=== PATIENT | male | born 1990 | race Hispanic/Latino ===

== ENCOUNTER 2016-08-10 12:10 | Emergency (ER) | payer MEDICAID ==
[2016-08-10 12:59] VITALS: RESP 18; TEMP 98.1
--- NOTE | 2016-08-10 13:28 | ED PDOC ---
HPI: Male Pain Time Seen by Provider: 08/10/16 13:17 Chief Complaint (Nursing): Male Genitourinary Chief Complaint (Provider): flank pain History Per: Patient History/Exam Limitations: no limitations Additional Complaint(s): 25yo male w/ Hx cyclic vomiting syndrome comes to the ED complaining of right flank pain radiating to the penis since 0600 today. No fever or diarrhea. States he was seen and diagnosed with a 4mm kidney stone at [facility] [place] 2 weeks ago. Has not had any pain between then and now. Was discharged without any Rx. Also reports vomit and abdominal pain. States he was instructed to follow up with Dr. Velazquez but has not done so due to insurance issue. Past Medical History Reviewed: Historical Data, Nursing Documentation, Vital Signs Vital Signs: Last Vital Signs Temp 98.1 F 08/10/16 12:57 Pulse 74 08/10/16 12:57 Resp 18 08/10/16 12:57 BP 166/89 H 08/10/16 12:57 Pulse Ox 99 08/10/16 12:57 - Medical History PMH: Asthma, Gastritis, Kidney Stones, Post Traumatic Stress Disorder Other PMH: cyclic vomiting symptom - Surgical History Surgical History: No Surg Hx - Family History Family History: States: Unknown Family Hx - Immunization History Hx Tetanus Toxoid Vaccination: No Hx Influenza Vaccination: No Hx Pneumococcal Vaccination: No - Home Medications Home Medications: Ambulatory Orders Medication Instructions Recorded Metoclopramide HCl [Reglan] 10 mg PO BID PRN #10 tablet 08/10/16 oxyCODONE/Acetaminophen [Percocet 1 ea PO Q6 PRN #6 tab 08/10/16 5/325 mg Tab] - Allergies Allergies/Adverse Reactions: Allergies Allergy/AdvReac Type Severity Reaction Status Date / Time No Known Allergies Allergy Verified 08/10/16 12:56 Review of Systems ROS Statement: Except As Marked, All Systems Reviewed And Found Negative Constitutional: Negative for: Fever Gastrointestinal: Positive for: Vomiting, Abdominal Pain. Negative for: Nausea , Diarrhea Physical Exam - Reviewed Nursing Documentation Reviewed: Yes Vital Signs Reviewed: Yes - Physical Exam Appears: Positive for: Non-toxic, No Acute Distress, Uncomfortable Head Exam: Positive for: ATRAUMATIC, NORMAL INSPECTION, NORMOCEPHALIC Skin: Positive for: Warm, Dry Eye Exam: Positive for: EOMI, PERRL Cardiovascular/Chest: Positive for: Regular Rate, Rhythm Respiratory: Positive for: Normal Breath Sounds. Negative for: Rales, Rhonchi, Wheezing Gastrointestinal/Abdominal: Positive for: Soft. Negative for: Tenderness Back: Positive for: R CVA Tenderness, Other (right flank tenderness). Negative for: L CVA Tenderness Extremity: Positive for: Normal ROM Neurologic/Psych: Positive for: Alert, Oriented - Laboratory Results Result Diagrams: 08/10/16 13:45 08/10/16 13:45 - ECG O2 Sat by Pulse Oximetry: 99 (RA) Pulse Ox Interpretation: Normal - Progress Re-evaluation Time: 18:28 Condition: Re-examined, Improved Medical Decision Making Medical Decision Makin: Rule out urethral stone, obstruction, urinary tract infection, cyclic vomiting syndrome, other abdominal pathology considered but not listed. CT abd/pel Impression: 5 mm ureteral calculus is noted within the urinary bladder just distal to the right UVJ. Mild fullness of the right system in ureter compatible with recently passed stone. Punctate nonobstructing 4 mm right renal calculus. Disposition - Clinical Impression Clinical Impression: Bladder stones, Renal colic on right side, Cyclic vomiting syndrome, Cannabis- induced anxiety disorder - Patient ED Disposition Is Patient to be Admitted: No Doctor Will See Patient In The: Office Counseled Patient/Family Regarding: Studies Performed, Diagnosis, Need For Followup - Disposition Referrals: Ryder Velazquez Jr., MD [Staff Provider] - Ryder Real MD, PhD [Staff Provider] - Disposition: Routine/Home Disposition Time: 18:30 Condition: GOOD Additional Instructions: Follow up with urologist and your PCP within 2-3 days. Prescriptions: oxyCODONE/Acetaminophen [Percocet 5/325 mg Tab] 1 ea PO Q6 PRN #6 tab PRN Reason: Pain, Moderate (4-7) Metoclopramide HCl [Reglan] 10 mg PO BID PRN #10 tablet PRN Reason: Nausea/Vomiting Instructions: Renal Colic (ED), Acute Nausea and Vomiting (ED) Additional Comments - Additional Comments Additional Comments: Scribe Attestation: Documented by Jorge Gutierrez acting as a scribe for Stephanie De Oliveira MD. Provider Scribe Attestation: All medical record entries made by the Scribe were at my direction and personally dictated by me. I have reviewed the chart and agree that the record accurately reflects my personal performance of the history, physical exam, medical decision making, and the department course for this patient. I have also personally directed, reviewed, and agree with the discharge instructions and disposition.
[2016-08-10] MEDS ORDERED: Sodium Chloride 0.9% 1,000 ML IV STA ×2 (13:35→15:01)
[2016-08-10 14:03] LABS: BASO % 0.1 % (0.0-2.0); HEMATOCRIT 47.7 % (35.0-51.0); LYMPH # 1.1 K/uL (1.0-4.3); LYMPH % 3.4 % (20.0-40.0); MEAN CELL VOLUME 92.5 fl (80.0-94.0); MEAN CORPUSCULAR HGB CONC 33.5 g/dL (33.0-37.0); MEAN PLATELET VOLUME 8.1 fl (7.2-11.7); MONO # 1.6 K/uL (0.0-0.8); NEUT # 28.6 K/uL (1.8-7.0); NEUT % 91.5 % (50.0-75.0); PLATELET COUNT 322 K/uL (130-400); RED CELL DISTRIBUTION WIDTH 13.9 % (11.5-14.5); WHITE BLOOD COUNT 31.3 K/uL (4.8-10.8)
[2016-08-10 14:07] LABS: ALB/GLOB RATIO 1.3 (1.0-2.1); ALKALINE PHOSPHATASE 132 U/L (38-126); ALT/SGPT 43 U/L (21-72); AST/SGOT 32 U/L (17-59); BILIRUBIN,TOTAL 0.7 mg/dl (0.2-1.3); BLOOD UREA NITROGEN 18 mg/dl (9-20); CALCIUM 10.5 mg/dL (8.4-10.2); CARBON DIOXIDE 16 mmol/L (22-30); CHLORIDE 105 mmol/L (98-107); GFR AFRICAN-AMERICAN > 60; GLUCOSE,RANDOM 136 mg/dL (75-110); LIPASE 43 U/L (23-300); POTASSIUM 4.2 MMOL/L (3.6-5.0); SODIUM 140 mmol/l (132-148); TOTAL PROTEIN 9.3 G/DL (6.3-8.2)
--- NOTE | 2016-08-10 15:08 | CT ---
PROCEDURE: CT Abdomen and Pelvis without Oral or IV contrast. HISTORY: right flank pain COMPARISON: None available. TECHNIQUE: Contiguous axial images of the abdomen and pelvis. No oral or IV contrast administered. Coronal and Sagittal reformats generated and reviewed. Radiation dose: Total exam DLP = 628.05 mGy-cm. FINDINGS: There is limited evaluation of the solid organs without the administration of IV contrast. LOWER THORAX: No visible consolidation, pleural effusion, or pneumothorax. Small hiatal hernia/distal esophageal wall thickening. LIVER: Unremarkable unenhanced appearance. GALLBLADDER AND BILE DUCTS: Unremarkable unenhanced appearance. PANCREAS: Unremarkable unenhanced appearance. SPLEEN: Unremarkable unenhanced appearance. ADRENALS: Unremarkable unenhanced appearance. KIDNEYS AND URETERS: 5 mm ureteral calculus is noted within the urinary bladder just distal to the right UVJ. Mild fullness of the right system in ureter compatible with recently passed stone. Punctate nonobstructing 4 mm right renal calculus. The left kidney appears unremarkable without hydronephrosis or hydroureter. BLADDER: See above. REPRODUCTIVE: Unremarkable. APPENDIX: The appendix appears within normal limits of caliber. No secondary signs of acute appendicitis. BOWEL: The stomach is nondistended. Lack of oral contrast limits evaluation for bowel pathology. The bowel loops appear within normal limits of caliber without evidence of intestinal obstruction. PERITONEUM: No significant free fluid. No definite free air. LYMPH NODES: Sub cm prominent mesenteric lymph nodes, nonspecific. VASCULATURE: No aortic aneurysm. BONES: No acute osseous abnormality is detected. OTHER FINDINGS: None. IMPRESSION: 5 mm ureteral calculus is noted within the urinary bladder just distal to the right UVJ. Mild fullness of the right system in ureter compatible with recently passed stone. Punctate nonobstructing 4 mm right renal calculus. Additional incidental findings as above.
[2016-08-10 15:35] LABS: NEUTROPHIL 94 % (42-75); TOTAL CELLS COUNTED 100
[2016-08-10 18:47] VITALS: BP 112/78; PULSE 88; O2SAT 98
== END 2016-08-10 18:47 | disposition home or self-care (01) ==
LOC: H.ER 12:10
DX: N21.0 Calculus in bladder (principal); N23 Unspecified renal colic; G43.A0 Cyclical vomiting, in migraine, not intractable; F41.9 Anxiety disorder, unspecified